=== PATIENT | female | born 1995 | race American Indian/Alaskan Native ===

== ENCOUNTER 2020-07-25 15:02 | Emergency (ER) | payer SELFPAY ==
[2020-07-25] MEDS ORDERED: MORPHINE 4 MG/1 ML INJ IV ONE (15:11)
[2020-07-25] MEDS ORDERED: LORazepam 2 MG/ML VIAL IV ONE (15:11)
[2020-07-25] MEDS ORDERED: KETOROLAC 30 MG/1 ML INJ IV ONE (15:11)
[2020-07-25] MEDS ORDERED: ONDANSETRON 4 MG/2 ML INJ ONE (15:12)
[2020-07-25] MEDS ORDERED: ONDANSETRON 4 MG/2 ML INJ IV ONE (15:22)
[2020-07-25] MEDS ORDERED: LIDOCAINE (1%) 10 MG/1 ML VIAL 20 ML MDV INFILTRATI ONE (15:27)
--- NOTE | 2020-07-25 15:52 | XRay Report ---
LEFT SHOULDER 3 VIEW(S) INDICATION / CLINICAL INFORMATION: shoulder injury COMPARISON: None available. FINDINGS: BONES / JOINT(S): Anterior glenohumeral dislocation is noted. No definite displaced fracture seen. No significant arthritis. SOFT TISSUES: Soft tissue swelling and edema around the shoulder. ADDITIONAL FINDINGS: None. Signer Name: Shade Hylton MD Signed: 07/25/2020 3:48 PM Workstation Name: [id number]
--- NOTE | 2020-07-25 16:09 | Emergency Department Report ---
ED Extremity Problem HPI - General Chief complaint: Extremity Injury, Upper Stated complaint: DISLOCATED LT SHOULDER Time Seen by Provider: 07/25/20 15:10 Source: patient, EMS Mode of arrival: Stretcher Limitations: No Limitations - History of Present Illness Initial comments: Patient is a 24-year-old F [place] female with a history of left shoulder di slocations who is presenting with dislocation. Patient states she was reaching behind her and she injured her left shoulder. States she feels as though it stuck in 90 degree position. Patient states the pain is 10 out of 10 with any movement. She has no decrease in sensation to the hand. Severity scale (0 -10): 10 - Related Data Previous Rx's Medication Instructions Recorded Last Taken Type Ketorolac [Toradol] 10 mg PO Q6H PRN #15 tablet 07/25/20 Unknown Rx methOCARBAMOL [Robaxin TAB] 500 mg PO Q6H PRN #14 tablet 07/25/20 Unknown Rx Allergies Allergy/AdvReac Type Severity Reaction Status Date / Time No Known Allergies Allergy Verified 07/25/20 15:19 ED Review of Systems ROS: Stated complaint: DISLOCATED LT SHOULDER Other details as noted in HPI Comment: All other systems reviewed and negative ED Past Medical Hx - Social History Smoking Status: Never Smoker Substance Use Type: None - Medications Home Medications: Home Medications Medication Instructions Recorded Confirmed Last Taken Type Ketorolac [Toradol] 10 mg PO Q6H PRN #15 tablet 07/25/20 Unknown Rx methOCARBAMOL [Robaxin TAB] 500 mg PO Q6H PRN #14 tablet 07/25/20 Unknown Rx ED Physical Exam - General Limitations: No Limitations General appearance: alert, in no apparent distress - Head Head exam: Present: atraumatic, normocephalic - Eye Eye exam: Present: normal appearance - ENT ENT exam: Present: mucous membranes moist - Neck Neck exam: Present: normal inspection - Respiratory Respiratory exam: Present: normal lung sounds bilaterally. Absent: respiratory distress, wheezes, rales, rhonchi - Cardiovascular Cardiovascular Exam: Present: regular rate, normal rhythm, normal heart sounds. Absent: systolic murmur, diastolic murmur, rubs, gallop - GI/Abdominal GI/Abdominal exam: Present: soft, normal bowel sounds. Absent: distended, tenderness, guarding, rebound - Extremities Exam Extremities exam: Present: tenderness - Expanded Upper Extremity Exam Left Shoulder Exam: Present: tenderness, dislocation. Absent: full ROM - Back Exam Back exam: Present: normal inspection - Neurological Exam Neurological exam: Present: alert, oriented X3 - Psychiatric Psychiatric exam: Present: normal affect, normal mood - Skin Skin exam: Present: warm, dry, intact, normal color. Absent: rash ED Course Vital Signs 07/25/20 07/25/20 07/25/20 15:10 15:17 15:30 Temperature 98 F Pulse Rate 51 L Respiratory 20 Rate Blood Pressure 128/86 128/86 O2 Sat by Pulse 100 98 98 Oximetry 07/25/20 16:01 Temperature Pulse Rate Respiratory Rate Blood Pressure 129/88 O2 Sat by Pulse 99 Oximetry - Orthopedic Joint Reduction Joint #1 Consent Obtained: verbal consent Time Out Performed: Yes Side: left Joint Reduction Location: shoulder Analgesia: other (Intra-articular lidocaine injection) Local Anesthetic Used: Lidocaine 1% Amount of Anesthetic Used (mls): 10 Shoulder Technique Used (if applicable): Milch Post-Reduction Neuro Exam: intact Post-Reduction Vascular Exam: intact Post Reduction X-Ray Obtained: No Splint Applied: Yes Patient Tolerated Procedure: well ED Medical Decision Making - Radiology Data Radiology results: image reviewed (Left shoulder dislocation which appears to be anterior) - Medical Decision Making Shoulder easily reduced with the Milch technique. Patient his pain was controlled well with IV medications and intra-articular lidocaine. Patient placed in a shoulder immobilizer and given orthopedics for follow-up and the patient will be discharged home. Critical care attestation.: If time is entered above; I have spent that time in minutes in the direct care of this critically ill patient, excluding procedure time. ED Disposition Clinical Impression: Shoulder dislocation Qualifiers: Encounter type: initial encounter Laterality: left Qualified Code(s): S43.005A - Unspecified dislocation of left shoulder joint, initial encounter Disposition: - TO HOME OR SELFCARE Is pt being admited?: No Does the pt Need Aspirin: No Condition: Stable Instructions: Shoulder Dislocation, How to Use a Shoulder Immobilizer Referrals: JEAN LOTT MD [Staff Physician] - 3-5 Days Time of Disposition: 16:10
[2020-07-25 17:07] VITALS: BP 110/54
== END 2020-07-25 17:04 | disposition home or self-care (01) ==
LOC: ED 15:02
DX: S43.085A Other dislocation of left shoulder joint, initial encounter (principal); Z79.899 Other long term (current) drug therapy; W22.8XXA Striking against or struck by other objects, initial encounter; Y93.89 Activity, other specified; Y92.89 Other specified places as the place of occurrence of the external cause; Y99.8 Other external cause status
CPT/HCPCS: 23650; 73030; 96374; 96375; 99284; J1885; J2060; J2270; J2405; 96365